=== PATIENT | male | born 1965 | race Caucasian/White ===

== ENCOUNTER 2024-03-09 22:18 | Emergency (ER) | payer OTHER ==
[~2024-03-09] VITALS: Ht 165.1 cm; Wt 70.5 kg
[2024-03-09] MEDS: KETOROLAC 30MG/ML VIAL IM STA (01:30)
[2024-03-09 22:24] VITALS: O2SAT 100
[2024-03-10 00:19] LABS: HEMATOCRIT. 35.3 % (42.0-52.0); HEMOGLOBIN. 12.3 g/dL (14.0-18.0); MEAN CORPUSCULAR HEMOGLOBIN 36.3 pg (28.0-32.0); MEAN CORPUSCULAR HGB CONC 34.8 g/dL (31.0-37.0); MEAN CORPUSCULAR VOLUME 104.3 fL (80.0-94.0); MEAN PLATELET VOLUME 7.9 fl (7.4-10.4); PLATELET 59 x1000/uL (130-400); RED BLOOD CELL COUNT 3.38 mill/uL (4.7-6.1); RED CELL DISTRIBUTION WIDTH 15.7 % (11.6-14.6); WHITE BLOOD COUNT 3.9 x1000/uL (4.5-11.0)
[2024-03-10 00:23] LABS: DIFFERENTIAL COMMENT 1
[2024-03-10 00:37] LABS: CHLORIDE 113 mEq/L (98-107); POTASSIUM 4.2 mEq/L (3.5-5.1); SODIUM 140 mEq/L (136-145)
[2024-03-10 00:38] LABS: CALCIUM 8.5 mg/dL (8.7-10.4); CARBON DIOXIDE 21 mEq/L (21-32)
[2024-03-10 00:43] LABS: CREATININE 0.8 mg/dL (0.6-1.3); GLUCOSE 162 mg/dL (70-105); UREA NITROGEN BLOOD 8 mg/dL (9-23)
[2024-03-10 01:19] LABS: PLATELET ESTIMATE NORMAL
[2024-03-10 01:21] LABS: ERYTHROCYTE SEDIMENTATION RATE 14 mm/hr (0-20)
[2024-03-10 04:03] VITALS: BP 115/53; PULSE 79; RESP 18; TEMP 37.05852; O2SAT 97
== END 2024-03-10 04:03 | disposition home or self-care (01) ==
LOC: ER 22:18
DX: M79.671 Pain in right foot (principal); R50.9 Fever, unspecified
CPT/HCPCS: 80048; 82962; 85025; 85651; 36415; 73630; 96372; 99284; J1885; Z7610